=== PATIENT | female | born 1955 | race Caucasian/White ===

== ENCOUNTER → 2017-03-03 | Outpatient (CLI) | payer BC ==
[~2017-03-03] MED LIST: CETI5TAB4 PO; ESTR0.6261 PO; METO5TAB PO; PANT40TA PO; TRIA1CAP49 PO; ZOLP-113 PO
== END ==
LOC: IMA 13:02
DX: M85.88 Other specified disorders of bone density and structure, other site (principal); K90.9 Intestinal malabsorption, unspecified; Z87.828 Personal history of other (healed) physical injury and trauma; Z90.710 Acquired absence of both cervix and uterus; Z90.722 Acquired absence of ovaries, bilateral